=== PATIENT | female | born 1980 ===

== ENCOUNTER 2021-08-09 08:27 | Inpatient (IN) | payer OTHER ==
[~2021-08-09] VITALS: Ht 160 cm; Wt 11.3 kg
[2021-08-09] MEDS ORDERED: ZESTORETIC 20-1 EAC1 PO (09:09)
[2021-08-09] MEDS ORDERED: LIPITOR40 M1 PO (09:09)
[2021-08-09] MEDS ORDERED: FENOFIBR PO (09:10)
[2021-08-15] MEDS ORDERED: FENOFIBRATE40 MG PO (08:37)
== END 2021-08-16 13:42 | disposition home or self-care (01) | DRG 336 ==
LOC: O/R 08-15 05:15 → SURH 08-15 07:00 → OB/GYN 08-15 11:31 → SURH 08-15 11:45 → OB/GYN 08-16 13:42
PROVIDERS: Surgery; ADMIT Obstetrics & Gynecology Gynecologic Oncology; ATTEND Obstetrics & Gynecology Gynecologic Oncology
PROC: 0WQF0ZZ Repair Abdominal Wall, Open Approach (ICD-10-PCS; 2021-08-15)
PROC: 0DNW0ZZ Release Peritoneum, Open Approach (ICD-10-PCS; principal; 2021-08-15 07:00)
PROC: 0DBW0ZZ Excision of Peritoneum, Open Approach (ICD-10-PCS; 2021-08-15 07:00)
DX: C78.6 Secondary malignant neoplasm of retroperitoneum and peritoneum (principal); C56.9 Malignant neoplasm of unspecified ovary; K42.0 Umbilical hernia with obstruction, without gangrene; N99.4 Postprocedural pelvic peritoneal adhesions; N73.6 Female pelvic peritoneal adhesions (postinfective); K43.2 Incisional hernia without obstruction or gangrene; I10 Essential (primary) hypertension; E78.5 Hyperlipidemia, unspecified

== ENCOUNTER → 2021-08-12 | Day surgery (SDC) | payer OTHER ==
[~2021-08-12] MED LIST: FENOFIBR PO; FENOFIBRATE40 MG PO; LIPITOR40 M1 PO; ZESTORETIC 20-1 EAC1 PO
== END | disposition home or self-care (01) ==
LOC: AMB-ENDOS
PROVIDERS: ATTEND Internal Medicine Gastroenterology
DX: K62.89 Other specified diseases of anus and rectum (principal); Z20.822 Contact with and (suspected) exposure to COVID-19